=== PATIENT | male | born 1965 | race Asian ===

== ENCOUNTER 2016-08-26 20:58 | Emergency (ER) | payer OTHER ==
[~2016-08-26] VITALS: Ht 162.6 cm; Wt 78.8 kg
[~2016-08-26 20:58] MED LIST: ZYRTEC10 M3 PO
[2016-08-26] MEDS ORDERED: NORCO 5/3251 TABLET PO (22:08)
[2016-08-26] MEDS ORDERED: SIMVASTATIN20 MG PO (22:20)
[2016-08-26] MEDS ORDERED: METFORMIN HCL1000 MG PO (22:20)
[2016-08-26 22:30] VITALS: BP 116/80
== END 2016-08-26 22:32 | disposition home or self-care (01) ==
LOC: EME 20:58
PROC: 2W3CX1Z Immobilization of Right Lower Arm using Splint (ICD-10-PCS; principal; 2016-08-26)
DX: S52.591A Other fractures of lower end of right radius, initial encounter for closed fracture (principal); S52.611A Displaced fracture of right ulna styloid process, initial encounter for closed fracture; V00.181A Fall from other rolling-type pedestrian conveyance, initial encounter
CPT/HCPCS: 73110; 73130; 99281; 99284